=== PATIENT | male | born 1970 | race Two or more races ===

== ENCOUNTER 2018-08-19 18:45 | Emergency (ER) | payer OTHER ==
[2018-08-19] MEDS: SODIUM CHLORIDE 0.9% FLUSH 10 ML SOL IV PRN (18:50)
[2018-08-19] MEDS ORDERED: NITROGLYCERIN 0.4 MG TAB SL ONE (18:53)
[2018-08-19] MEDS ORDERED: ASPIRIN 81 MG CHEWABLE CTB ONE (18:53)
[2018-08-19] MEDS: ASPIRIN 81 MG CHEWABLE CTB PO STA (18:54)
[2018-08-19] MEDS: NITROGLYCERIN 0.4 MG TAB SL PRN (18:55)
[2018-08-19 18:56] LABS: BASOPHILS % (AUTO) 1 % (0-3); EOSINOPHILS % (AUTO) 1 % (0-9); HEMATOCRIT 38 % (39-53); HEMOGLOBIN 12.5 gm/dl (13.5-17.7); LYMPHOCYTES % (AUTO) 16.8 % (10-50); MEAN CORPUSCULAR HEMOGLOBIN 29.6 pg (27.0-32.0); MEAN CORPUSCULAR HGB CONC 33.4 gm/dl (32.0-36.0); MEAN CORPUSCULAR VOLUME 89 fL (80-100); MONOCYTES % (AUTO) 8.4 % (0-12); NEUTROPHILS % (AUTO) 73.8 % (37-80)
[2018-08-19 18:57] VITALS: RESP 18; TEMP 99.1
[2018-08-19 19:07] LABS: INR 1.02 (0.86-1.12)
[2018-08-19 19:12] LABS: ALBUMIN 3.8 gm/dl (3.4-5.0); ALKALINE PHOSPHATASE 134 IU/L (46-116); ALT 28 IU/L (14-63); AST 25 IU/L (15-37); BILIRUBIN,TOTAL 0.5 mg/dl (0.2-1.0); BLOOD UREA NITROGEN 16 mg/dl (7-18); CALCIUM 8.4 mg/dl (8.5-10.1); CARBON DIOXIDE 27.2 mEq/L (21-32); CHLORIDE 101 mMol/L (98-107); CREATINE KINASE 241 U/L (39-308); CREATININE 1.01 mg/dl (0.80-1.30); GLUCOSE 146 mg/dl (74-106); POTASSIUM 3.7 mMol/L (3.5-5.1); SODIUM 139 mMol/L (136-145); TOTAL PROTEIN 7.9 gm/dl (6.4-8.2); TROP I < 0.017 ng/ml (0.000-0.056)
[2018-08-19 20:51] VITALS: BP 119/74; PULSE 86; O2SAT 98
== END 2018-08-19 19:45 | disposition home or self-care (01) | DRG 313 ==
LOC: ED 18:45
DX: R07.89 Other chest pain (principal); R06.02 Shortness of breath; I10 Essential (primary) hypertension
CPT/HCPCS: 71045; 80053; 82550; 84484; 85025; 85610; 85730; 93005; 99284; A9270-GY